=== PATIENT | female | born 1945 | race Two or more races ===

== ENCOUNTER 2021-07-30 10:14 | Emergency (ER) | payer SELFPAY ==
[~2021-07-30] VITALS: Ht 152.4 cm; Wt 42.0 kg
[2021-07-30 11:34] LABS: BASO # 0.1 x10^3/uL (0.0-0.2); BASO % 1 % (0-3); EOS # 0.1 x10^3/uL (0.0-0.7); EOS % 1 % (0-3); HEMATOCRIT 39.4 % (36.0-47.0); HEMOGLOBIN 13.6 g/dL (12.0-15.5); LYMPH % 29 % (24-48); MEAN CORPUSCULAR HEMOGLOBIN 31 pg (25-35); MEAN CORPUSCULAR HGB CONC 34 g/dL (31-37); MEAN CORPUSCULAR VOLUME 89 fL (79-100); MONO # 0.6 x10^3/uL (0.0-1.1); MONO % 9 % (0-9); NEUT # 4.2 x10^3/uL (1.8-7.7); NEUT % 60 % (31-73); PLATELET COUNT 178 x10^3/uL (140-400); RED BLOOD COUNT 4.44 x10^6/uL (3.50-5.40); RED CELL DISTRIBUTION WIDTH 13.1 % (11.5-14.5); WHITE BLOOD COUNT 6.9 x10^3/uL (4.0-11.0)
[2021-07-30 11:37] LABS: CALCIUM 8.8 mg/dL (8.5-10.1); CREATININE 0.6 mg/dL (0.6-1.0); GFR 96.9; POTASSIUM 4.4 mmol/L (3.5-5.1)
[2021-07-30 11:42] LABS: ALBUMIN 3.5 g/dL (3.4-5.0); ALBUMIN/GLOBULIN RATIO 0.9 (1.0-1.7); TOTAL BILIRUBIN 0.7 mg/dL (0.2-1.0); TOTAL PROTEIN 7.4 g/dL (6.4-8.2)
--- NOTE | 2021-07-30 11:52 | PHYS DOC ---
Past Medical History Past Medical History: Diabetes-Type II Past Surgical History: Other Additional Past Surgical Histo: CATARACT REMOVAL Smoking Status: Never Smoker Alcohol Use: None General Adult EDM: Chief Complaint: ABDOMINAL PAIN HPI: HPI: Patient is a 75-year-old female who presents today with right upper quadrant abdominal pain. With use of interpretive services because patient only speaks Thai, patient informed us that she has had abdominal pain now for 2 days mostly located in the right upper quadrant. She states it comes in waves she has nausea and vomiting related to this. She does state that she has not had a bowel movement in 5 days, she also states that her urine is very orange and dark in nature. Review of Systems: Review of Systems: Constitutional: fever or chills. [] Eyes: Denies change in visual acuity. [] HENT: Denies nasal congestion or sore throat. [] Respiratory: Denies cough or shortness of breath. [] Cardiovascular: Denies chest pain or edema. [] GI: Abdominal pain, nausea, vomiting, and constipation. : Denies dysuria. [] Musculoskeletal: Denies back pain or joint pain. [] Integument: Denies rash. [] Neurologic: Denies headache, focal weakness or sensory changes. [] Endocrine: Denies polyuria or polydipsia. [] Lymphatic: Denies swollen glands. [] Psychiatric: Denies depression or anxiety. [] Heart Score: C/O Chest Pain: N/A Risk Factors: Risk Factors: DM, Current or recent (<one month) smoker, HTN, HLP, family history of CAD, obesity. Risk Scores: Score 0 - 3: 2.5% MACE over next 6 weeks - Discharge Home Score 4 - 6: 20.3% MACE over next 6 weeks - Admit for Clinical Observation Score 7 - 10: 72.7% MACE over next 6 weeks - Early Invasive Strategies Current Medications: Current Medications Medications (Trade) Dose Ordered Sig/Claire Start Time Stop Time Status Last Admin Dose Admin Fentanyl Citrate (Fentanyl 2ml Vial) 50 mcg 1X ONCE 07/30/21 11:45 07/30/21 11:46 UNV Ondansetron HCl (Zofran) 4 mg 1X ONCE 07/30/21 11:45 07/30/21 11:46 UNV Sodium Chloride 1,000 ml @ 999 mls/hr 1X ONCE 07/30/21 11:45 07/30/21 12:45 UNV Allergies: Allergies: Allergies Coded Allergies Type Severity Reaction Last Updated Verified No Known Drug Allergies 07/30/21 No Physical Exam: PE: Constitutional: moderate distress, thin female. [] HENT: Normocephalic, atraumatic, bilateral external ears normal, oropharynx m oist, no oral exudates, nose normal. [] Eyes: PERRLA, EOMI, conjunctiva normal, no discharge. [] Neck: Normal range of motion, no tenderness, supple, no stridor. [] Cardiovascular:Heart rate regular rhythm, no murmur [] Lungs & Thorax: Bilateral breath sounds clear to auscultation [] Abdomen: Bowel sounds hypoactive, abdomen guarded, pain with light palpation to the right upper quadrant liver is below the costal margin, [] Skin: Warm, dry, no erythema, no rash. [] Back: No tenderness, no CVA tenderness. [] Extremities: No tenderness, no cyanosis, no clubbing, ROM intact, no edema. [] Neurologic: Alert and oriented X 3, normal motor function, normal sensory function, no focal deficits noted. [] Psychologic: Affect normal, judgement normal, mood normal. [] Current Patient Data: Labs: Laboratory Tests Test 07/30/21 11:16 07/30/21 13:45 White Blood Count 6.9 x10^3/uL Red Blood Count 4.44 x10^6/uL Hemoglobin 13.6 g/dL Hematocrit 39.4 % Mean Corpuscular Volume 89 fL Mean Corpuscular Hemoglobin 31 pg Mean Corpuscular Hemoglobin Concent 34 g/dL Red Cell Distribution Width 13.1 % Platelet Count 178 x10^3/uL Neutrophils (%) (Auto) 60 % Lymphocytes (%) (Auto) 29 % Monocytes (%) (Auto) 9 % Eosinophils (%) (Auto) 1 % Basophils (%) (Auto) 1 % Neutrophils # (Auto) 4.2 x10^3/uL Lymphocytes # (Auto) 2.0 x10^3/uL Monocytes # (Auto) 0.6 x10^3/uL Eosinophils # (Auto) 0.1 x10^3/uL Basophils # (Auto) 0.1 x10^3/uL Sodium Level 134 mmol/L Potassium Level 4.4 mmol/L Chloride Level 97 mmol/L Carbon Dioxide Level 27 mmol/L Anion Gap 10 Blood Urea Nitrogen 14 mg/dL Creatinine 0.6 mg/dL Estimated GFR (Cockcroft-Gault) 96.9 BUN/Creatinine Ratio 23 Glucose Level 324 mg/dL Calcium Level 8.8 mg/dL Total Bilirubin 0.7 mg/dL Aspartate Amino Transf (AST/SGOT) 12 U/L Alanine Aminotransferase (ALT/SGPT) 42 U/L Alkaline Phosphatase 117 U/L Total Protein 7.4 g/dL Albumin 3.5 g/dL Albumin/Globulin Ratio 0.9 Lipase 118 U/L Urine Collection Type Unknown Urine Color Yellow Urine Clarity Clear Urine pH 7.5 Urine Specific [place] >=1.030 Urine Protein Negative mg/dL Urine Glucose (UA) 500 mg/dL Urine Ketones (Stick) Trace mg/dL Urine Blood Negative Urine Nitrite Negative Urine Bilirubin Negative Urine Urobilinogen Dipstick 0.2 mg/dL Urine Leukocyte Esterase Negative Urine RBC 0 /HPF Urine WBC Occ /HPF Urine Squamous Epithelial Cells Few /LPF Urine Bacteria 0 /HPF Current Medications Medications (Trade) Dose Ordered Sig/Claire Route PRN Reason Start Time Stop Time Status Last Admin Dose Admin Sodium Chloride 1,000 ml @ 999 mls/hr 1X ONCE IV 07/30/21 12:00 07/30/21 13:00 DC 07/30/21 12:46 Fentanyl Citrate (Fentanyl 2ml Vial) 50 mcg 1X ONCE IVP 07/30/21 12:00 07/30/21 12:01 DC 07/30/21 12:46 Ondansetron HCl (Zofran) 4 mg 1X ONCE IVP 07/30/21 12:00 07/30/21 12:01 DC 07/30/21 12:46 Iohexol (Omnipaque 300 Mg/ml) 75 ml 1X ONCE IV 07/30/21 12:00 07/30/21 12:01 DC 07/30/21 11:57 Info (CONTRAST GIVEN -- Rx MONITORING) 1 each PRN DAILY PRN MC SEE COMMENTS 07/30/21 12:00 08/01/21 11:59 Laboratory Tests Test 07/30/21 11:16 White Blood Count 6.9 x10^3/uL (4.0-11.0) Red Blood Count 4.44 x10^6/uL (3.50-5.40) Hemoglobin 13.6 g/dL (12.0-15.5) Hematocrit 39.4 % (36.0-47.0) Mean Corpuscular Volume 89 fL (79-100) Mean Corpuscular Hemoglobin 31 pg (25-35) Mean Corpuscular Hemoglobin Concent 34 g/dL (31-37) Red Cell Distribution Width 13.1 % (11.5-14.5) Platelet Count 178 x10^3/uL (140-400) Neutrophils (%) (Auto) 60 % (31-73) Lymphocytes (%) (Auto) 29 % (24-48) Monocytes (%) (Auto) 9 % (0-9) Eosinophils (%) (Auto) 1 % (0-3) Basophils (%) (Auto) 1 % (0-3) Neutrophils # (Auto) 4.2 x10^3/uL (1.8-7.7) Lymphocytes # (Auto) 2.0 x10^3/uL (1.0-4.8) Monocytes # (Auto) 0.6 x10^3/uL (0.0-1.1) Eosinophils # (Auto) 0.1 x10^3/uL (0.0-0.7) Basophils # (Auto) 0.1 x10^3/uL (0.0-0.2) Sodium Level 134 mmol/L (136-145) L Potassium Level 4.4 mmol/L (3.5-5.1) Chloride Level 97 mmol/L (98-107) L Carbon Dioxide Level 27 mmol/L (21-32) Anion Gap 10 (6-14) Blood Urea Nitrogen 14 mg/dL (7-20) Creatinine 0.6 mg/dL (0.6-1.0) Estimated GFR (Cockcroft-Gault) 96.9 BUN/Creatinine Ratio 23 (6-20) H Glucose Level 324 mg/dL (70-99) H Calcium Level 8.8 mg/dL (8.5-10.1) Total Bilirubin Pending Aspartate Amino Transferase (AST) Pending Alanine Aminotransferase (ALT) Pending Alkaline Phosphatase Pending Total Protein Pending Albumin Pending Albumin/Globulin Ratio Pending Lipase Pending Laboratory Tests 07/30/21 11:16 Laboratory Tests 07/30/21 11:16 Vital Signs: Vital Signs Date Time Temp Pulse Resp B/P (MAP) Pulse Ox O2 Delivery O2 Flow Rate FiO2 07/30/21 15:01 84 19 139/77 (97) 97 Room Air 07/30/21 14:38 84 17 116/67 (83) 97 Room Air 07/30/21 13:38 82 16 142/76 (98) 96 Room Air 07/30/21 13:16 19 96 Room Air 07/30/21 12:46 17 Room Air 07/30/21 12:38 84 15 134/72 (92) 96 Room Air 07/30/21 11:38 88 19 135/71 (92) 98 Room Air 07/30/21 10:53 98.3 91 16 148/77 (100) 99 Room Air 98.3 Vital Signs Date Time Temp Pulse Resp B/P (MAP) Pulse Ox O2 Delivery O2 Flow Rate FiO2 07/30/21 10:53 98.3 91 16 148/77 (100) 99 Room Air 98.3 EKG: EKG: [] Radiology/Procedures: Radiology/Procedures: REASON: right upper quad abdominal pain PROCEDURE: CT ABD PELV W/ IV CONTRST ONLY EXAM: Abdomen and pelvis CT with intravenous contrast. HISTORY: Pain. TECHNIQUE: Computed tomographic images of the abdomen and pelvis were obtained following the administration of intravenous contrast. Multiplanar reformatting was performed. *One or more of the following individualized dose reduction techniques were utilized for this examination: 1. Automated exposure control. 2. Adjustment of the mA and/or kV according to patient size. 3. Use of iterative reconstruction technique. COMPARISON: None. FINDINGS: Evaluation of the lower thorax demonstrates no infiltrate or pleural effusion. There is hepatic surface nodularity consistent with cirrhosis. No focal hepatic lesion is seen. The gallbladder, pancreas, spleen and adrenal glands are unremarkable. There is a tiny simple left renal cyst. There is no appendicitis. There is no bowel obstruction. There is no abnormal bowel wall thickening. There is moderate colonic stool. The bladder, uterus and adnexal regions are unremarkable. The aorta is normal in caliber. There is no lymphadenopathy. There is no acute or suspicious osseous finding. IMPRESSION: 1. Hepatic cirrhosis. 2. Moderate colonic stool. Electronically signed by: Rebeka Jerez MD (07/30/2021 12:01 PM) [id number] REASON: RUQ pain PROCEDURE: ABDOMEN LTD EXAM: Abdomen sonogram. HISTORY: Pain. TECHNIQUE: Sonographic imaging of the abdomen was performed. COMPARISON: None. FINDINGS: The liver is normal in size. No focal hepatic lesion is seen. The gallbladder is unremarkable. The common bile duct is normal in caliber. The right kidney, pancreas and if indicated are unremarkable. IMPRESSION: No acute sonographic finding. Electronically signed by: Rebeka Jerez MD (07/30/2021 12:42 PM) [id number] [] Course & Med Decision Making: Course & Med Decision Making Pertinent Labs and Imaging studies reviewed. (See chart for details) [id number] spoke to patient and family member with interpretive services. Patient states her abdomen does feel better. And she has not had any nausea or vomiting whilst in the department. Did discuss laboratory and radiological findings with family and informed there is nothing acute at this time to suggest any infectious process or surgical issue at this time. Did inform them that her colon was full of stool and that constipation can cause severe abdominal pain if bad enough. I did suggest the patient drink a bottle of magnesium citrate tonight, and then starting tomorrow take MiraLAX on a daily basis. If patient starts having diarrhea stools to back off on the MiraLAX to every other day. Patient is to follow-up with her primary care physician by phone tomorrow with an appointment next week for further management of her constipation. Patient is also to follow a clear liquid diet for the next 24 hours then advance as tolerated. Family verbalized understanding of the discharge instruction and is agreeable to the plan of care. Patient is also informed that patient is unable to keep by mouth fluids down or pain worsens in any way or suggest right lower quadrant abdominal pain they are to return to the emergency department for further evaluation. [place] Disclaimer: Dragon Disclaimer: This electronic medical record was generated, in whole or in part, using a voice recognition dictation system. Departure Departure Impression: Primary Impression: Constipation Qualified Codes: K59.00 - Constipation, unspecified Additional Impression: Abdominal pain Qualified Codes: R10.84 - Generalized abdominal pain Disposition: HOME / SELF CARE / HOMELESS Condition: STABLE Referrals: NO PCP (PCP) Patient Instructions: Abdominal Pain, Clear Liquid Diet, Constipation, Adult Additional Instructions: Drink 1 bottle of magnesium citrate today Start MiraLAX per label directed daily, if your stool becomes loose, cut down to every other day Clear liquid diet for the next 24 hours then advance as tolerated Zofran take 1 tablet every 6 hours as needed for nausea, use with caution may cause constipation [place] take 1 tablet every 6 hours as needed for severe pain, use with caution may cause constipation and drowsiness Follow-up with your primary care physician tomorrow by phone and get an appointment for next week for further evaluation of your abdominal pain Return to the emergency department for increased pain, fever or inability to keep by mouth fluids down. Scripts Hydrocodone Bit/Acetaminophen (HYDROCODONE-APAP 5-325 ) 1 Tab Tablet 1 TAB PO PRN Q6HRS PRN for PAIN, #10 TAB 0 Refills Prov: VINAY MEZA [employer] ENGINEER 07/30/21 Ondansetron (ONDANSETRON ODT) 4 Mg Tab.rapdis 1 TAB PO PRN Q6HRS PRN for NAUSEA/VOMITING, #16 TAB Prov: VINAY MEZA [employer]K ENGINEER 07/30/21 VINAY MEZA DECK ENGINEER Jul 30, 2021 11:52
[2021-07-30] MEDS ORDERED: CONTRAST GIVEN. MC PRN (12:00)
[2021-07-30] MEDS ORDERED: IV NORMAL SALINE 1000ML BAG 1,000 ML IV ONE (12:00)
[2021-07-30] MEDS ORDERED: fentaNYL PF VIAL 100 MCG/2 ML VIAL IVP ONE (12:00)
[2021-07-30] MEDS ORDERED: ONDANSETRON PF 4 MG/2 ML VIAL. IVP ONE (12:00)
[2021-07-30] MEDS ORDERED: IOHEXOL 300 MG/ML 100ML VIAL. IV ONE (12:00)
--- NOTE | 2021-07-30 12:04 | RAD ---
EXAM: Abdomen and pelvis CT with intravenous contrast. HISTORY: Pain. TECHNIQUE: Computed tomographic images of the abdomen and pelvis were obtained following the administ ration of intravenous contrast. Multiplanar reformatting was performed. *One or more of the following individualized dose reduction techniques were utilized for this examina tion: 1. Automated exposure control. 2. Adjustment of the mA and/or kV according to patient size. 3. Use of iterative reconstruction technique. COMPARISON: None. FINDINGS: Evaluation of the lower thorax demonstrates no infiltrate or pleural effusion. There is hep atic surface nodularity consistent with cirrhosis. No focal hepatic lesion is seen. The gallbladder, pancreas, spleen and adrenal glands are unremarkable. There is a tiny simple left renal cyst. There i s no appendicitis. There is no bowel obstruction. There is no abnormal bowel wall thickening. There i s moderate colonic stool. The bladder, uterus and adnexal regions are unremarkable. The aorta is norm al in caliber. There is no lymphadenopathy. There is no acute or suspicious osseous finding. IMPRESSION: 1. Hepatic cirrhosis. 2. Moderate colonic stool. Electronically signed by: Rebeka Jerez MD (07/30/2021 12:01 PM) [id number]
--- NOTE | 2021-07-30 12:44 | RAD ---
EXAM: Abdomen sonogram. HISTORY: Pain. TECHNIQUE: Sonographic imaging of the abdomen was performed. COMPARISON: None. FINDINGS: The liver is normal in size. No focal hepatic lesion is seen. The gallbladder is unremarkab le. The common bile duct is normal in caliber. The right kidney, pancreas and if indicated are unrema rkable. IMPRESSION: No acute sonographic finding. Electronically signed by: Rebeka Jerez MD (07/30/2021 12:42 PM) [id number]
[2021-07-30 14:00] LABS: BILIRUBIN,URINE NEGATIVE (NEG); CLARITY,URINE CLEAR; COLOR,URINE YELLOW; NITRITE,URINE NEGATIVE (NEG); PH,URINE 7.5 (<5.0-8.0); PROTEIN,URINE NEGATIVE (NEG-TRACE); UROBILINOGEN,URINE 0.2 mg/dL (0.2 mg/dL)
[2021-07-30 14:10] LABS: BACTERIA,URINE 0 /HPF (0-FEW); RBC,URINE 0 /HPF (0-2); WBC,URINE OCC /HPF (0-4)
[2021-07-30 15:01] VITALS: BP 139/77
[2021-07-30] MEDS ORDERED: HYDR-2761 PO (15:10)
[2021-07-30] MEDS ORDERED: ONDA4TAB12 PO (15:10)
[2021-07-30] MEDS ORDERED: MAGNESIUM CITRATE 296 ML SOLUTION. PO ONE (15:15)
== END 2021-07-30 15:26 | disposition home or self-care (01) ==
LOC: ER 10:14
DX: K59.00 Constipation, unspecified (principal); R10.84 Generalized abdominal pain; E11.9 Type 2 diabetes mellitus without complications
CPT/HCPCS: 36415; 74177; 76705; 80053; 81001; 83690; 85025; 96361; 96374; 96375; 99285; J2405; J3010; J7030; Q9967